=== PATIENT | female | born 1970 | race Caucasian/White ===

== ENCOUNTER 2016-08-05 19:22 | Emergency (ER) | payer OTHER ==
[2016-08-05 19:36] VITALS: BMI 28.3
[2016-08-05 19:38] VITALS: BP 148/85; PULSE 89; TEMP 99.5
[2016-08-05] MEDS ORDERED: TDAP Vaccine 0.5 mL Syr IM ONE (20:01)
--- NOTE | 2016-08-05 20:02 | ED PDOC ---
Arrival/HPI - General Chief Complaint: Eye Problem Time Seen by Provider: 08/05/16 19:23 Historian: Patient - History of Present Illness Narrative History of Present Illness (Text): 08/05/16 20:01 This 45 yo female presents to this ED c/o left corneal abrasion x [employer]. Patient stated she injured left eye with edge of paper bag. Denies other complains. Time/Duration: Prior to Arrival Context: Home Past Medical History - Provider Review Nursing Documentation Reviewed: Yes - Infectious Disease Hx of Infectious Diseases: None - Tetanus Immunization Tetanus Immunization: Unknown - Past Medical History Past Medical History: No Previous - Psychiatric Hx Depression: No Hx Emotional Abuse: No Hx Physical Abuse: No Hx Substance Use: No - Past Surgical History Past Surgical History: No Previous - Suicidal Assessment Feels Threatened In Home Enviroment: No Family/Social History - Physician Review Nursing Documentation Reviewed: Yes Family/Social History: No Known Family HX Smoking Status: Never Smoked Hx Alcohol Use: No Hx Substance Use: No Hx Substance Use Treatment: No Allergies/Home Meds Allergies/Adverse Reactions: Allergies No Known Allergies Allergy (Verified 08/05/16 19:36) Review of Systems - Review of Systems Constitutional: Normal. absent: Fatigue, Weight Change, Fevers, Night Sweats Eyes: Other (Left eye pain, and tearing) ENT: Normal Respiratory: Normal Cardiovascular: Normal Gastrointestinal: Normal Genitourinary Female: Normal Musculoskeletal: Normal Skin: Normal Neurological: Normal Endocrine: Normal Hemo/Lymphatic: Normal Psychiatric: Normal Physical Exam Vital Signs Temp Pulse Resp BP Pulse Ox 08/05/16 20:50 16 99 08/05/16 19:37 99.5 F 89 17 148/85 98 Temperature: Afebrile Blood Pressure: Normal Pulse: Regular Respiratory Rate: Normal Appearance: Positive for: Well-Appearing, Non-Toxic, Comfortable Pain Distress: None Mental Status: Positive for: Alert and Oriented X 3 - Systems Exam Head: Present: Atraumatic, Normocephalic Pupils: Present: PERRL, Other (no hyphema) Extroacular Muscles: Present: EOMI Conjunctiva: Present: Normal, Other ((+) left cornea has 3 mm abrasion, seen with fluorescine stain. No FB or laceration) Mouth: Present: Moist Mucous Membranes Neck: Present: Normal Range of Motion Upper Extremity: Present: Normal Inspection, Normal ROM Lower Extremity: Present: Normal Inspection, NORMAL PULSES, Normal ROM Neurological: Present: GCS=15, CN II-XII Intact, Speech Normal, Gait Normal Skin: Present: Warm, Dry, Normal Color. No: Rashes Psychiatric: Present: Alert, Oriented x 3 Medical Decision Making ED Course and Treatment: 08/05/16 20:[address] Vallejo, [employer] regarding corneal abrasion left cornea. He recommended Tobrex Ophthalmic ointment, and eye patch. Also he recommended to have patient to come to his office tomorrow at 9 am Re-evaluation Time: 20:10 Reassessment Condition: Re-examined, Improved - Medication Orders Current Medication Orders: Discontinued Medications Tetanus/Reduced Diphtheria/Acell Pertussis (Boostrix Vaccine Inj) 0.5 ml IM .ONCE ONE Stop: 08/05/16 20:02 Last Admin: 08/05/16 20:29 Dose: 0.5 ml Tobramycin Sulfate (Tobrex 0.3% Ophth Oint) 1 appl OS STAT STA Stop: 08/05/16 20:08 Last Admin: 08/05/16 20:30 Dose: 1 applic Disposition/Present on Arrival - Present on Arrival Any Indicators Present on Arrival: No History of DVT/PE: No History of Uncontrolled Diabetes: No Urinary Catheter: No History of Decub. Ulcer: No History Surgical Site Infection Following: None - Disposition Have Diagnosis and Disposition been Completed?: Yes Diagnosis: Corneal abrasion Disposition: HOME/ ROUTINE Disposition Time: 20:10 Patient Plan: Discharge Condition: GOOD Discharge Instructions (ExitCare): Corneal Abrasion (ED) Additional Instructions: Dr. Vallejo Eye doctor is expecting to you tomorrow at 9am at his office. Return to emergency if symptoms worsen. Prescriptions: Acetaminophen with Codeine [Tylenol with Codeine #3 Tablet] 1 each PO Q6H PRN # 10 tablet PRN Reason: Pain, Severe (8-10) Referrals: Lalit Slaughter DO [Primary Care Provider] - Follow up with primary Gavino Vallejo MD [Staff Provider] - Follow up with primary Forms: WORK NOTE
[2016-08-05] MEDS ORDERED: Tobramycin 0.3% OPH OINT OS STA (20:07)
[2016-08-05 20:50] VITALS: RESP 16; O2SAT 99
== END 2016-08-05 20:50 | disposition home or self-care (01) ==
LOC: ED 19:22
DX: S05.02XA Injury of conjunctiva and corneal abrasion without foreign body, left eye, initial encounter (principal); W22.8XXA Striking against or struck by other objects, initial encounter; Y92.89 Other specified places as the place of occurrence of the external cause; Z23 Encounter for immunization

== ENCOUNTER 2016-10-07 21:50 | Emergency (ER) | payer OTHER ==
[2016-10-07 22:22] VITALS: TEMP 99
[2016-10-07 22:23] VITALS: BMI 45.0
--- NOTE | 2016-10-07 23:53 | ED PDOC ---
Arrival/HPI - General Chief Complaint: Lower Extremity Problem/Injury Time Seen by Provider: 10/07/16 22:15 Historian: Patient - History of Present Illness Narrative History of Present Illness (Text): 10/07/16 23:40 46yr old female presents today with right foot pain, swelling and erythema since yesterday. pt denies trauma or injury. pt c/o subjective fevers at home. took 500mg of naproxen at 9pm tonight. c/o difficulty with ambulation. denies calf pain. pt denies numbness, weakness, tingling in the extremity. pt describes sharp 8/10 pain to right foot along dorsal aspect. Time/Duration: Other (1 day) Symptom Onset: Gradual Symptom Course: Worsening Quality: Aching, Stabbing Severity Level: 8 Past Medical History - Provider Review Nursing Documentation Reviewed: Yes - Travel History Have you recently traveled outside [place] w/in the past 3 mons?: No - Infectious Disease Hx of Infectious Diseases: None - Tetanus Immunization Tetanus Immunization: Unknown - Past Medical History Past Medical History: No Previous - Psychiatric Hx Depression: No Hx Emotional Abuse: No Hx Physical Abuse: No Hx Substance Use: No - Past Surgical History Past Surgical History: No Previous - Suicidal Assessment Feels Threatened In Home Enviroment: No Family/Social History - Physician Review Nursing Documentation Reviewed: Yes Family/Social History: Unknown Family HX Smoking Status: Never Smoked Hx Alcohol Use: No Hx Substance Use: No Hx Substance Use Treatment: No Allergies/Home Meds Allergies/Adverse Reactions: Allergies No Known Allergies Allergy (Verified 08/05/16 19:36) Review of Systems - Review of Systems Constitutional: Fevers. absent: Fatigue Respiratory: absent: SOB, Cough Cardiovascular: absent: Chest Pain, Palpitations Gastrointestinal: absent: Abdominal Pain, Nausea, Vomiting Musculoskeletal: Arthralgias (right foot pain) Skin: absent: Rash, Pruritis Neurological: absent: Headache, Dizziness Psychiatric: absent: Anxiety, Depression Physical Exam Vital Signs Reviewed: Yes Vital Signs Temp Pulse Resp BP Pulse Ox 10/07/16 22:00 99.0 F 92 H 16 126/72 98 Temperature: Afebrile Blood Pressure: Normal Pulse: Regular Respiratory Rate: Normal Appearance: Positive for: Well-Appearing, Non-Toxic, Comfortable Pain Distress: None Mental Status: Positive for: Alert and Oriented X 3 - Systems Exam Head: Present: Atraumatic Mouth: Present: Moist Mucous Membranes Respiratory/Chest: Present: Clear to Auscultation Cardiovascular: Present: Regular Rate and Rhythm Lower Extremity: Present: NORMAL PULSES, Normal ROM, Tenderness (right foot; + ttp over dorsal aspect of foot; + edema and erythema noted to dorsal aspect over lateral aspect. + warmth. sensation and distal pulses intact. cap refill < 2. ), Swelling, Erythema, Neurovascularly Intact, Capillary Refill < 2 s. No: CALF TENDERNESS Skin: Present: Warm, Dry Psychiatric: Present: Alert Medical Decision Making ED Course and Treatment: 10/07/16 23:54 pt with right foot pain/redness/swelling since yesterday. afebrile in ER. cbc wnl cmp wnl xray right xray: no fracture 10/08/16 02:01 I discussed the results in depth with the patient. We will try outpatient for outpatient treatment of cellulitis as patient without white blood cell count or significant cellulitis or edema. I will start the patient on Bactrim and Keflex for cellulitis of the lower extremity. Patient was advised to follow up with the primary care physician within the next 2 days. Patient was advised immediate return if symptoms worsen persist or if new concerning symptoms develop, fevers, increasing pain, increasing redness, increasing swelling. Patient verbalizes understanding of discharge instructions and need for immediate followup. all aspects of this case were discussed the attending of record. 10/08/16 02:04 impression; cellulitis, foot motrin every 6 hours as needed for pain bactrim 1 tablet twice daily x 7 days keflex; 1 capsule 4 times daily x 7 days follow up with the primary care physician within the next 2 days. return immediately if symptoms worsen,persist or if new symptoms develop: high fevers, increasing pain, redness, swelling or if nay other concerning symptoms develop. - Lab Interpretations Lab Results: 10/07/16 23:32 10/07/16 23:32 Lab Results 10/07/16 23:32: WBC 6.7 D, RBC 3.54, Hgb 10.1 L, Hct 30.6 L, MCV 86.4, MCH 28.5 , MCHC 33.0, RDW 13.3, Plt Count 295, MPV 9.3, Gran % 58.9, Lymph % (Auto) 33.5 , [place] % (Auto) 6.3 H, Eos % (Auto) 1.2 L, Baso % (Auto) 0.1, Gran # 3.94, Lymph # 2.2, [place] # 0.4, Eos # 0.1, Baso # 0.01 10/07/16 23:32: Sodium 137, Potassium 3.9, Chloride 102, Carbon Dioxide 28, Anion Gap 11, BUN 13, Creatinine 0.8, Est GFR ( Amer) > 60, Est GFR (Non- Af Amer) > 60, Random Glucose 97, Calcium 9.0, Total Bilirubin 0.4, AST 21, ALT 22, Alkaline Phosphatase 64, Total Protein 7.2, Albumin 3.7, Globulin 3.5, Albumin/Globulin Ratio 1.1 - RAD Interpretation Radiology Orders: 10/07/16 23:07 FOOT RIGHT 3 VIEWS ROUTINE [RAD] Stat - Medication Orders Current Medication Orders: Cephalexin Monohydrate (Keflex) 500 mg PO STAT STA PRN Reason: Protocol Stop: 10/08/16 02:01 Trimethoprim/Sulfamethoxazole (Bactrim Ds Tab) 1 tab PO STAT STA PRN Reason: Protocol Stop: 10/08/16 02:01 Discontinued Medications Ketorolac Tromethamine (Toradol) 30 mg IVP STAT STA Stop: 10/07/16 23:42 Last Admin: 10/08/16 00:03 Dose: 30 mg Disposition/Present on Arrival - Present on Arrival Any Indicators Present on Arrival: No History of DVT/PE: No History of Uncontrolled Diabetes: No Urinary Catheter: No History of Decub. Ulcer: No History Surgical Site Infection Following: None - Disposition Have Diagnosis and Disposition been Completed?: Yes Diagnosis: Cellulitis Disposition: HOME/ ROUTINE Disposition Time: 02:05 Patient Plan: Discharge Condition: GOOD Discharge Instructions (ExitCare): Cellulitis (ED) Additional Instructions: motrin every 6 hours as needed for pain bactrim 1 tablet twice daily x 7 days keflex; 1 capsule 4 times daily x 7 days follow up with the primary care physician within the next 2 days. return immediately if symptoms worsen,persist or if new symptoms develop: high fevers, increasing pain, redness, swelling or if nay other concerning symptoms develop. Prescriptions: Cephalexin [Keflex] 500 mg PO QID #28 capsule Ibuprofen [Motrin] 600 mg PO Q6H PRN #20 tab PRN Reason: pain/fever reduction Sulfamethoxazole/Trimethoprim [Bactrim DS 800 mg-160 mg] 1 tab PO BID #14 tab Referrals: Lalit Slaughter DO [Primary Care Provider] - Follow up with primary Gary Salgado DPM [Staff Provider] - Follow up with primary Forms: WORK NOTE
[2016-10-07 23:56] LABS: ALB/GLOB RATIO 1.1 (1.1-1.8); ALBUMIN 3.7 g/dL (3.0-4.8); ALT/SGPT 22 U/L (7-56); AST/SGOT 21 U/L (15-39); BLOOD UREA NITROGEN 13 mg/dL (7-21); GFR AFRICAN-AMERICAN > 60; GFR NON-AFRICAN AMERICAN > 60
[2016-10-08 00:08] LABS: BASO # 0.01 K/mm3 (0.0-2.0); BASO % 0.1 % (0.0-3.0); EOS # 0.1 (0.0-0.7); EOS % 1.2 % (1.5-5.0); GRAN # 3.94 (1.4-6.5); GRAN % 58.9 % (50.0-68.0); HEMOGLOBIN 10.1 gm/dL (12.0-16.0); LYMPH # 2.2 (1.2-3.4); LYMPH % 33.5 % (22.0-35.0); MEAN CELL VOLUME 86.4 fL (80.0-105.0); MEAN CORPUSCULAR HEMOGLOBIN 28.5 pg (25.0-35.0); MEAN PLATELET VOLUME 9.3 fl (7.0-11.0); MONO # 0.4 (0.1-0.6); MONO % 6.3 % (1.0-6.0); PLATELET COUNT 295 10^3/uL (120.0-450.0); RBC 3.54 10^6/uL (3.5-6.1); RED CELL DISTRIBUTION WIDTH 13.3 % (11.5-14.5); WHITE BLOOD COUNT 6.7 10^3/ul (4.5-11.0)
[2016-10-08] MEDS ORDERED: Tmp-Smz 800 mg-160 mg DS Tab PO STA (02:00)
[2016-10-08 02:05] VITALS: BP 115/81; PULSE 91; RESP 18; O2SAT 100
--- NOTE | 2016-10-08 08:46 | RAD ---
PROCEDURE: Right Foot Radiographs. HISTORY: Right foot pain/swelling/erythema COMPARISON: None. FINDINGS: BONES: Bone alignment and mineralization are normal. There is no acute fracture or bone destruction. There is an os trigonum. There is a prominent dorsal calcaneal enthesophyte. JOINTS: Normal. SOFT TISSUES: Normal. OTHER FINDINGS: None. IMPRESSION: No acute displaced fracture or dislocation.
== END 2016-10-08 02:11 | disposition home or self-care (01) ==
LOC: ED 21:50
DX: L03.115 Cellulitis of right lower limb (principal)
CPT/HCPCS: 73630; 80053; 85025; 96374; 99284; J1885